=== PATIENT | male | born 1955 | race African-American/Black ===

== ENCOUNTER 2020-11-16 21:07 | Emergency (ER) | payer MEDICAID ==
[~2020-11-16] VITALS: Ht 162.6 cm; Wt 69.0 kg
[2020-11-16 21:24] VITALS: BP 110/50
[2020-11-16] MEDS ORDERED: IBUPROFEN 600MG TABLET PO STA (22:46)
[2020-11-16] MEDS ORDERED: DIPHENHYDRAMINE 50MG/ML VIAL IM ONE (23:00)
== END 2020-11-16 23:48 | disposition home or self-care (01) ==
LOC: ER 21:07
DX: L25.9 Unspecified contact dermatitis, unspecified cause (principal); M79.662 Pain in left lower leg; M79.661 Pain in right lower leg; R53.81 Other malaise
CPT/HCPCS: 96372; 99283; J1200

== ENCOUNTER 2021-08-10 16:02 | Emergency (ER) | payer MEDICAID ==
[~2021-08-10] VITALS: Ht 172.7 cm; Wt 50.0 kg
[2021-08-10 19:04] LABS: BASOPHILS % 0.5 % (0.0-2.0); EOSINOPHILS % 7.3 % (0.0-5.0); HEMOGLOBIN. 9.7 g/dL (14.0-18.0); MEAN CORPUSCULAR HEMOGLOBIN 30.2 pg (28.0-32.0); MEAN CORPUSCULAR VOLUME 90.1 fL (80.0-94.0); MEAN PLATELET VOLUME 8.2 fl (7.4-10.4); MONOCYTES % 12.1 % (2.0-8.0); NEUTROPHILS % 56.1 % (40.0-76.0); PLATELET 331 x1000/uL (130-400); RED BLOOD CELL COUNT 3.22 mill/uL (4.7-6.1); RED CELL DISTRIBUTION WIDTH 16.1 % (11.6-14.6)
[2021-08-10 19:09] LABS: CHLORIDE 108 mEq/L (98-107)
[2021-08-10] MEDS ORDERED: POTASSIUM CHLORIDE 20MEQ TABLET SR PO ONE (23:30)
[2021-08-11 00:57] LABS: CLARITY URINE CLEAR (CLEAR); COLOR URINE DARK YELLOW (YELLOW); KETONES URINE TRACE (NEGATIVE); LEUKOCYTE ESTERASE URINE NEGATIVE (NEGATIVE); NITRITE URINE NEGATIVE (NEGATIVE); OCCULT BLOOD URINE NEGATIVE (NEGATIVE); PROTEIN URINE TRACE (NEGATIVE); SPECIFIC GRAVITY URINE 1.029 (1.005-1.030)
[2021-08-11 01:14] LABS: *AMPHETAMINES SCREEN URINE NEGATIVE (NEGATIVE); *BARBITURATES SCREEN URINE NEGATIVE (NEGATIVE); *BENZODIAZEPINES SCREEN URINE NEGATIVE (NEGATIVE); *COCAINE SCREEN URINE PRESUMTIVE POSITIVE (NEGATIVE); METHADONE URINE SCREEN NEGATIVE (NEGATIVE); OPIATES URINE SCREEN NEGATIVE (NEGATIVE)
[2021-08-11 01:15] LABS: CANNABINOID URINE SCREEN NEGATIVE (NEGATIVE); PHENCYCLIDINE URINE SCREEN NEGATIVE (NEGATIVE)
[2021-08-11 06:00] VITALS: BP 102/62
== END 2021-08-11 06:15 | disposition home or self-care (01) ==
LOC: ER 16:02
DX: F14.129 Cocaine abuse with intoxication, unspecified (principal); R41.0 Disorientation, unspecified; E87.6 Hypokalemia; E46 Unspecified protein-calorie malnutrition; E88.09 Other disorders of plasma-protein metabolism, not elsewhere classified; R80.9 Proteinuria, unspecified; R82.4 Acetonuria; J44.9 Chronic obstructive pulmonary disease, unspecified; S21.131A Puncture wound without foreign body of right front wall of thorax without penetration into thoracic cavity, initial encounter; S42.021A Displaced fracture of shaft of right clavicle, initial encounter for closed fracture; X95.9XXA Assault by unspecified firearm discharge, initial encounter; Y93.89 Activity, other specified; Y92.9 Unspecified place or not applicable; R53.1 Weakness; R26.9 Unspecified abnormalities of gait and mobility; E86.0 Dehydration; M19.90 Unspecified osteoarthritis, unspecified site; N17.0 Acute kidney failure with tubular necrosis; F17.210 Nicotine dependence, cigarettes, uncomplicated; F41.9 Anxiety disorder, unspecified; K08.56 Poor aesthetic of existing restoration of tooth; Z59.00 Homelessness unspecified; Z87.440 Personal history of urinary (tract) infections
CPT/HCPCS: 36415; 71045; 80053; 80305; 81003; 82962; 83880; 84484; 85025; 93005; 99285

== ENCOUNTER 2022-01-13 19:47 | Emergency (ER) | payer SELFPAY ==
[~2022-01-13] VITALS: Ht 170.2 cm; Wt 64.0 kg
[2022-01-14 02:19] VITALS: BP 116/74
== END 2022-01-14 02:19 | disposition home or self-care (01) ==
LOC: ER 19:47
DX: F15.10 Other stimulant abuse, uncomplicated (principal); F14.10 Cocaine abuse, uncomplicated; F41.9 Anxiety disorder, unspecified; J44.9 Chronic obstructive pulmonary disease, unspecified; M19.90 Unspecified osteoarthritis, unspecified site
CPT/HCPCS: 99283

== ENCOUNTER 2022-01-14 10:11 | Emergency (ER) | payer SELFPAY ==
[~2022-01-14] VITALS: Ht 170.2 cm; Wt 71.0 kg
[2022-01-14 10:32] VITALS: BP 115/65
== END 2022-01-14 12:45 | disposition home or self-care (01) ==
LOC: ER 10:11
DX: G89.29 Other chronic pain (principal); M79.604 Pain in right leg; F41.9 Anxiety disorder, unspecified; M19.90 Unspecified osteoarthritis, unspecified site; J44.9 Chronic obstructive pulmonary disease, unspecified; F15.10 Other stimulant abuse, uncomplicated; F14.10 Cocaine abuse, uncomplicated
CPT/HCPCS: 99281

== ENCOUNTER 2022-10-17 11:50 | Emergency (ER) | payer MEDICAID ==
[~2022-10-17] VITALS: Ht 172.7 cm; Wt 73.0 kg
[2022-10-17 11:54] VITALS: BP 142/86
[2022-10-17] MEDS ORDERED: ACETAMINOPHEN 325MG TABLET PO ONE (13:00)
== END 2022-10-17 13:16 | disposition home or self-care (01) ==
LOC: ER 11:50
DX: M79.18 Myalgia, other site (principal); F41.9 Anxiety disorder, unspecified; M19.90 Unspecified osteoarthritis, unspecified site; J44.9 Chronic obstructive pulmonary disease, unspecified; Z87.440 Personal history of urinary (tract) infections; Z98.890 Other specified postprocedural states
CPT/HCPCS: 99283

== ENCOUNTER 2022-10-17 16:30 | Emergency (ER) | payer MEDICAID ==
[~2022-10-17] VITALS: Ht 167.6 cm; Wt 75.0 kg
[2022-10-17 16:36] VITALS: BP 110/54
[2022-10-17] MEDS ORDERED: ACETAMINOPHEN 325MG TABLET PO ONE (18:00)
[2022-10-17 18:34] LABS: CLARITY URINE CLEAR (CLEAR); COLOR URINE DARK YELLOW (YELLOW); KETONES URINE TRACE (NEGATIVE); LEUKOCYTE ESTERASE URINE NEGATIVE (NEGATIVE); NITRITE URINE NEGATIVE (NEGATIVE); OCCULT BLOOD URINE NEGATIVE (NEGATIVE); PH URINE 6.5 (4.5-8.0); PROTEIN URINE TRACE (NEGATIVE); UROBILINOGEN URINE >8.0 E.U./dL (0.2-1.0)
== END 2022-10-17 19:13 | disposition home or self-care (01) ==
LOC: ER 16:30
DX: R52 Pain, unspecified (principal); F41.9 Anxiety disorder, unspecified; M19.90 Unspecified osteoarthritis, unspecified site; J44.9 Chronic obstructive pulmonary disease, unspecified; F17.210 Nicotine dependence, cigarettes, uncomplicated; Z59.00 Homelessness unspecified; Z87.440 Personal history of urinary (tract) infections
CPT/HCPCS: 71045; 81003; 99284

== ENCOUNTER 2022-10-18 08:10 | Emergency (ER) | payer MEDICAID ==
[~2022-10-18] VITALS: Ht 167.6 cm; Wt 66.0 kg
[2022-10-18 08:21] VITALS: BP 140/90
== END 2022-10-18 09:18 | disposition home or self-care (01) ==
LOC: ER 08:10
DX: M79.606 Pain in leg, unspecified (principal); F14.10 Cocaine abuse, uncomplicated; F15.10 Other stimulant abuse, uncomplicated; J44.1 Chronic obstructive pulmonary disease with (acute) exacerbation; Z59.00 Homelessness unspecified; Z98.890 Other specified postprocedural states
CPT/HCPCS: 99281

== ENCOUNTER 2022-10-20 19:43 | Emergency (ER) | payer MEDICAID ==
[~2022-10-20] VITALS: Ht 180.3 cm; Wt 73.0 kg
[2022-10-20 19:54] VITALS: BP 137/82
[2022-10-21] MEDS ORDERED: ACETAMINOPHEN 325MG TABLET PO NR
== END 2022-10-21 01:14 | disposition home or self-care (01) ==
LOC: ER 21:18
DX: M79.661 Pain in right lower leg (principal); R53.81 Other malaise; F41.9 Anxiety disorder, unspecified; M19.90 Unspecified osteoarthritis, unspecified site; J44.9 Chronic obstructive pulmonary disease, unspecified; F15.10 Other stimulant abuse, uncomplicated; F14.10 Cocaine abuse, uncomplicated; Z87.828 Personal history of other (healed) physical injury and trauma; Z98.890 Other specified postprocedural states
CPT/HCPCS: 99283